=== PATIENT | female | born 1995 | race Caucasian/White ===

== ENCOUNTER 2019-02-03 04:37 | Emergency (ER) | payer MEDICAID, OTHER ==
[~2019-02-03] VITALS: Ht 162.6 cm; Wt 58.0 kg
[2019-02-03] MEDS ORDERED: IBUP-1984 PO (05:39)
[2019-02-03] MEDS ORDERED: HYDROcodone/acetaminophen 5mg/325mg tablet PO ONE (05:40)
[2019-02-03] MEDS ORDERED: ibuprofen tablet 400 MG TABLET PO ONE (05:40)
[2019-02-03 05:44] VITALS: BP 115/92
== END 2019-02-03 05:59 | disposition home or self-care (01) ==
LOC: ER 04:39
DX: S93.492A Sprain of other ligament of left ankle, initial encounter (principal); F17.200 Nicotine dependence, unspecified, uncomplicated; Z88.1 Allergy status to other antibiotic agents; Z79.899 Other long term (current) drug therapy; W10.8XXA Fall (on) (from) other stairs and steps, initial encounter; Y93.89 Activity, other specified; Y92.89 Other specified places as the place of occurrence of the external cause; Y99.8 Other external cause status
CPT/HCPCS: 29515; 73610; 99283

== ENCOUNTER → 2019-02-20 | Outpatient (CLI) | payer MEDICAID, OTHER ==
[2019-02-20 14:48] VITALS: BP 135/80
== END | disposition home or self-care (01) ==
LOC: ORTHO 14:52
PROVIDERS: ATTEND Orthopaedic Surgery
DX: S93.402D Sprain of unspecified ligament of left ankle, subsequent encounter (principal); Z87.891 Personal history of nicotine dependence; X58.XXXD Exposure to other specified factors, subsequent encounter
CPT/HCPCS: G0463